=== PATIENT | male | born 1960 | race Caucasian/White ===

== ENCOUNTER 2023-11-12 21:42 | Emergency (ER) | payer BC, SELFPAY ==
[2023-11-12 21:51] VITALS: BP 134/90
[2023-11-12] MEDS: DUONEB 3 ML INH ×2 (22:01→23:25)
--- NOTE | 2023-11-12 23:01 | ED.GENMED ---
History of Present Illness
General
Chief Complaint: Breathing Problem
Source: patient and spouse
Exam Limitations: none
Time Seen by Provider: 11/12/23 22:47
Nursing documentation reviewed up to this point in time: agreed with
Travel History
Have you had any contact with someone who has COVID-19?: No
Do you have any symptoms of coronavirus? Fever > 100 degrees, chills, cough, shortness of breath, sore throat, loss of taste or smell, muscle aches, or headache?: No
History of Present Illness
History of Present Illness:
62-year-old male presents emerged part complaining of cough, wheezing and shortness of breath worse over the past week. He has been struggling with this since July. He has been seen at urgent care in August and was placed on steroid given
albuterol. In July his primary care placed him on antibiotic for sinus infection, steroid albuterol. This seemed to help some.
Past History
Past History
ED Past Medical History: Other (Chronic cough, sinus infections)
ED Past Surgical History: Other (Rhinoplasty)
Social History
Tobacco: Non-smoker
Alcohol: None
Drug: None
Personal:
Living: with family
Review of Systems
Review of Systems
Allergies reviewed?: Yes
All Other Systems: Not applicable
Constitutional: Reports no symptoms
EENT: Reports runny nose
Respiratory: Reports cough and trouble breathing
Cardiac: Reports no symptoms
ABD/GI: Reports no symptoms
: Reports no symptoms
Musculoskeletal: Reports no symptoms
Skin: Reports no symptoms
Neurological: Reports no symptoms
Endocrine: Reports no symptoms
Hematologic/Lymphatic: Reports no symptoms
Psychiatric: Reports no symptoms
Phy Exam
Physical Exam
Physical Exam:
Physical Exam
General: no apparent distress, not acutely ill, afebrile
Neck: supple. no meningeal signs. normal posterior pharynx
Heart: s1/s2 regular rate and rhythm, no murmur. equal radial
pulses.
HEENT: Pupils equal round reactive to light, EOMI
Lungs: no acute respiratory distress. clear bilaterally, intermittent cough
Abdomen: normal bowel sounds. not tender. no CVAT
Neuro: alert and oriented. no focal neurological deficits cranial nerves II through XII intact
Skin: no rash
Psychiatric: well kept. interactive and cooperative
Extremities: no edema. no calf tenderness. negative homans. good distal pulses
Scores
Heart Failure Risk
Heart Failure Risk Score: Not Applicable
Course
Orders/Labs/Results
Orders:
Orders
11/12/23 21:59
Ipratropium/Albuterol Sulfate [Duoneb] 3 ml .ROUTE .STK-MED ONE
11/12/23 22:00
Ipratropium/Albuterol Sulfate [Duoneb] 3 ml INH R NOW ONE
11/12/23 22:59
Cardiac Monitoring- Treatment ONCE
IV Insert/Care/Rem.- Treatment PRN
Dexamethasone Sod Phosphate [Decadron] 10 mg IV NOW STA
Ipratropium/Albuterol Sulfate [Duoneb] 3 ml INH R NOW STA
Pulse Ox/cont/shift [RESP] Stat
Quantity: 1
11/12/23 23:24
Complete Blood Count/No Diff Urgent
Comprehensive Metabolic Panel Urgent
11/13/23 00:00
CR Chest - 2 Views Urgent
Reason For Exam: short of breath, cough
11/13/23 01:14
Pantoprazole [Protonix IV] 40 mg IV NOW STA
Abnormal Lab Results
11/12/23
23:24
BUN 24 H mg/dl
(9-20)
Glucose 153 H mg/dl
(70-99)
11/12/23 23:24
11/12/23 23:24
Vital Signs
Initial and Last Documented VS:
Initial Vital Signs
Temp Pulse Resp BP Pulse Ox
97.6 F 96 28 134/90 94
11/12/23 21:51 11/12/23 21:51 11/12/23 21:51 11/12/23 21:51 11/12/23 21:51
Last Documented Vital Signs
Temp Pulse Resp BP Pulse Ox
97.6 F 77 15 116/78 96
11/12/23 21:51 11/13/23 01:00 11/13/23 01:00 11/13/23 01:00 11/13/23 01:00
MDM/Problems Addressed
Differential Diagnosis Includes:
Pneumonia, asthma exacerbation, bronchitis
MDM/Problems Addressed:
62-year-old male with bronchospastic bronchitis, likely related to GERD versus allergies. Will prescribe short course of steroids. No signs of pneumonia.
Chronic conditions affecting care: Other (Chronic cough)
*Radiology
Radiology exam reviewed: preliminary read by ED provider (Chest x-ray no acute finding)
*Pulse Oximetry
Patient hypoxic: no
*EKG
Interpreted by ED Provider?: NA
*Pool Player Interpretation
Rate: Pool Player- N/A
*Critical Care Note
Total Time (30-74mins, 75-104mins- exclusive of procedures): Not Applicable
Patient Management
Social determinants of health affecting care: Living situation
Escalation/DeEscalation of care consider admission/obs:
Admit not indicated
ED Attending Note
-
Portions of this chart may have been created with voice recognition software.� Occasional wrong word or��sound alike� substitutions may have occurred due to the inherent limitations of voice recognition software.
Discharge Plan
Departure
Patient Disposition: Home (Routine Discharge)
Date of Disposition: 11/13/23
Time of Disposition: 01:15
Patient with high blood pressure during this ER visit?: Yes
Condition: Good
Discharge Problem:
Bronchitis, acute, with bronchospasm
Instructions: Acute Bronchitis, Adult (DC), BLOOD PRESSURE
Prescriptions:
New
pantoprazole [Protonix] 40 mg tablet,delayed release (DR/EC)
40 mg PO DAILY Qty: 30 0RF
prednisone 50 mg tablet
50 mg PO DAILY Qty: 5 0RF
No Action
losartan 50 mg Tablet
50 mg PO DAILY
levothyroxine 75 mcg Tablet
75 mcg PO DAILY
Referrals:
Isael Sahni MD [Family Provider] -
Arthur North MD [Active] - Call in 1-3 days for appt (Pulmonology)
Interventions
Interventions:
*Risk Screen - Suicide Last Done: 11/12/23 21:51
*General Assessment Last Done: 11/12/23 23:14
*Neglect/Abuse Screening Last Done: 11/12/23 21:51
ED- Fall Risk Assessment Last Done: 11/12/23 23:32
*ED COVID-19 Vaccine History Last Done: 11/12/23 23:14
*Nursing Disposition Last Done: 11/13/23 02:04
ED- Cardiac Assessment Last Done: 11/12/23 23:32
ED- Pulmonary Assessment Last Done: 11/12/23 23:25
Discharge Date and Time
Discharge Date/Time: 11/13/23 02:04
Print Language: UPPER SORBIAN
[2023-11-12 23:14] VITALS: BMI 25.0
[2023-11-12] MEDS: DECADRON 10 MG IV (23:23)
[2023-11-12 23:38] LABS: Hemoglobin 14.8 g/dL (13.0-18.0); Mean Corp Hgb Conc. 36.1 g/dL (33.0-37.0); Mean Corpuscular Hgb 30.4 pg (27.0-31.0); Mean Corpuscular Volume 84.2 fL (80.0-94.0); Mean Platelet Volume 10.1 fL (7.4-10.4); Platelet Count 231 10^3/uL (130-400); Red Blood Cell Count 4.87 10^6/uL (4.70-6.10); Red Cell Dist. Width 12.6 % (11.5-14.5); White Blood Cell Count 9.4 10^3/uL (4.8-10.8)
--- NOTE | 2023-11-12 23:45 | EDRN ---
Pt says he feels better after breathing txs. Pt has had sob for months, worse in past 3 days, rescue inhalers not helping so pt came to ED for evaluation. Occasional dry, hacking non productive cough. No cp, abd pain, n/v, fever/chills.
[2023-11-12 23:53] LABS: ALT (SGPT) 19 U/L (0-50); AST (SGOT) 25 U/L (17-59); Albumin 4.2 g/dl (3.5-5.0); Alkaline Phosphatase 80 U/L (38-126); Blood Urea Nitrogen 24 mg/dl (9-20); Calcium 9.9 mg/dl (8.4-10.2); Carbon Dioxide 24 mmol/L (22-30); Chloride 105 mmol/L (98-107); Estimated Creatinine Clearance 74 ml/min; Glucose 153 mg/dl (70-99); Potassium 3.6 mmol/L (3.5-5.1); Sodium 135 mmol/L (135-145); Total Bilirubin 0.5 mg/dl (0.2-1.3); Total Protein 6.8 g/dl (6.3-8.2); eGFR > 60.00
[2023-11-13] VITALS: BP 111/74
[2023-11-13 01:00] VITALS: BP 116/78
[2023-11-13] MEDS: PROTONIX IV 40 MG IV (01:50)
== END 2023-11-13 02:04 | disposition home or self-care (01) ==
LOC: EMR 21:42
PROVIDERS: EMERGENCY PHYSICIAN Emergency Medicine; FAMILY PHYSICIAN Family Medicine
DX: J20.9 Acute bronchitis, unspecified (principal); R03.0 Elevated blood-pressure reading, without diagnosis of hypertension
CPT/HCPCS: 99284; 96374; 96375; 94640; 71046; 80053; 85027

== ENCOUNTER 2023-12-01 18:55 | Emergency (ER) | payer BC, SELFPAY ==
[2023-12-01 18:57] VITALS: BP 124/75
[2023-12-01 19:20] VITALS: BMI 25.8
[2023-12-01 19:34] VITALS: BP 115/79
--- NOTE | 2023-12-01 19:44 | ED.GENMED ---
History of Present Illness
General
Chief Complaint: Breathing Problem
Source: patient, records, spouse, previous radiology exam and previous hospital records
Exam Limitations: none
Time Seen by Provider: 12/01/23 19:10
Nursing documentation reviewed up to this point in time: agreed with
Travel History
Have you had any contact with someone who has COVID-19?: No
Do you have any symptoms of coronavirus? Fever > 100 degrees, chills, cough, shortness of breath, sore throat, loss of taste or smell, muscle aches, or headache?: No
History of Present Illness
History of Present Illness:
62year male presents with cough and shortness of breath fever last night of 102
Patient had asthma as a child allergies in his adulthood 6 months ago developed cough and shortness of breath seen in urgent care ER recently 2 courses steroids orally followed up with pulmonary told that he did have asthma given what sounds like a
rescue inhaler and a preventative inhaler
Also on a PPI
Also had sinus congestion, no occupational inhalations
States he is feeling better now that he is out of the heat and humidity, and cool ER air, states he not as severe as he was when he was in the ER recently but he states he came earlier this time
Past History
Past History
ED Past Medical History: Asthma and Other (Chronic cough, sinus infections)
ED Past Surgical History: Other (Rhinoplasty)
Social History
Tobacco: Non-smoker
Alcohol: None
Drug: None
Personal:
Living: with family
Employment: Employed
Review of Systems
Review of Systems
All Other Systems: Not applicable
Constitutional: Reports fever and fatigue
EENT: Reports runny nose
Respiratory: Reports cough and trouble breathing
Cardiac: Reports no symptoms
ABD/GI: Reports no symptoms
: Reports no symptoms
Musculoskeletal: Reports no symptoms
Skin: Reports no symptoms
Phy Exam
Physical Exam
Physical Exam:
Physical Exam
General: Nasal sounding voice nontoxic
Neck: Posterior pharynx is clear
Heart: s1/s2 regular rate and rhythm, no murmur. equal radial pulses.
Lungs: Fair air movement with end expiratory wheeze
Abdomen: Not
Neuro: alert and oriented. no focal neurological deficits
Skin: no rash
Psychiatric: well kept. interactive and cooperative
Extremities: no edema. no calf tenderness.
Scores
Heart Failure Risk
Heart Failure Risk Score: Not Applicable
Course
Orders/Labs/Results
Orders:
Orders
12/01/23 19:35
Cardiac Monitoring- Treatment ONCE
IV Insert/Care/Rem.- Treatment PRN
Dexamethasone Sod Phosphate [Decadron] 10 mg IV NOW STA
Ipratropium/Albuterol Sulfate [Duoneb] 3 ml INH R NOW STA
Peak Flow Rate [RESP] Urgent
Quantity: 1
12/01/23 19:36
CR Chest - 2 Views Urgent
Comment:
Reason For Exam: fever cough
12/01/23 19:48
Electrocardiogram (*1) Urgent
Reason for Study: Shortness of Breath
EKG- Treatment ONCE
12/01/23 20:34
COVID-19 Antigen Urgent
Source: Nasal Swab
Complete Blood Count/With Diff Urgent
Comprehensive Metabolic Panel Urgent
Lactic Acid Q4H
Comment: CANCEL 2nd LACTIC ACID IF 1st LACTIC ACID IS LESS THAN 2
Procalcitonin Urgent
PCT Algorithmm Indication: Respiratory
Blood Culture Q30M
MARQUISE Source: Blood/Venous
Specimen Description:
Influenza A+B Rapid Molecular Urgent
MARQUISE Source: Nasal Swab
Specimen Description:
12/01/23 20:53
Blood Culture Q30M
MARQUISE Source: Blood/Venous
Specimen Description:
12/01/23 21:19
Respiratory Syncytial Virus Urgent
MARQUISE Source: Nasal Swab
Specimen Description:
Date Specimen was Collected: 12/01/23
Time Specimen was Collected: 21:17
12/01/23 22:23
Azithromycin [Zithromax] 500 mg PO NOW STA
Abnormal Lab Results
12/01/23
20:34
Monocytes % 10.4 H %
(1.7-9.3)
Glucose 114 H mg/dl
(70-99)
Procalcitonin 0.28 H ng/ml
(0.0-0.25)
12/01/23 20:34
12/01/23 20:34
Vital Signs
Initial and Last Documented VS:
Initial Vital Signs
Temp Pulse Resp BP Pulse Ox
98.2 F 84 18 124/75 97
12/01/23 18:57 12/01/23 18:57 12/01/23 18:57 12/01/23 18:57 12/01/23 18:57
Last Documented Vital Signs
Temp Pulse Resp BP Pulse Ox
98.2 F 71 10 109/75 95
12/01/23 18:57 12/01/23 21:00 12/01/23 21:00 12/01/23 21:00 12/01/23 21:00
MDM/Problems Addressed
Differential Diagnosis Includes:
Reactive airway disease viral syndrome bronchitis pneumonia perhaps vocal cord dysfunction
MDM/Problems Addressed:
Cough shortness of breath fever
Chronic conditions affecting care: HTN and Asthma
Acute Exacerbation and/or Progression of Chronic Illness: HTN and Asthma
*Radiology
Radiology exam reviewed: preliminary read by ED provider
*Pulse Oximetry
Patient hypoxic: no
*EKG
Interpreted by ED Provider?: Yes
Interpretation: normal
Comparison EKG: no comparison EKG present
Heart Rate: 70
Rate: normal
Rhythm: sinus
Ischemia: no ischemia
*Chief Dietitian Interpretation
Rate: normal
Interpretation: normal
Heart Rate: 78
Rhythm: sinus
*Critical Care Note
Total Time (30-74mins, 75-104mins- exclusive of procedures): Not Applicable
Update Note
Update Note:
Update patient with recurrent but persistent respiratory issues for about 6 months urgent care visit pulmonary visit and ER visit
Peak flow initially 290-300
Will try DuoNeb and steroids check labs viral swabs
Did have a fever last night which he has not had previously during the last 6 months
10:30 AM peak flow up to 400 patient feeling much better Long conversation with him about labs chest x-ray results procalcitonin will treat with the Zithromax there is some anti-inflammatory properties for that, slow taper steroids did talk to the
patient he has seen an ENT a year year and a half ago told that he had some sort of abnormality in his upper airway encouraged him to follow up with them again, apparently they had recommended some further testing which he never ended up having done
ED Attending Note
-
Portions of this chart may have been created with voice recognition software.� Occasional wrong word or��sound alike� substitutions may have occurred due to the inherent limitations of voice recognition software.
Discharge Plan
Departure
Patient Disposition: Home (Routine Discharge)
Date of Disposition: 12/01/23
Time of Disposition: 22:27
Patient with high blood pressure during this ER visit?: No
Condition: Good
Discharge Problem:
Asthmatic bronchitis
Instructions: Acute Bronchitis, Adult (DC), Asthma, Adult (DC)
Prescriptions:
No Action
losartan 50 mg Tablet
50 mg PO DAILY
levothyroxine 75 mcg Tablet
75 mcg PO DAILY
pantoprazole [Protonix] 40 mg tablet,delayed release (DR/EC)
40 mg PO DAILY Qty: 30 0RF
prednisone 50 mg tablet
50 mg PO DAILY Qty: 5 0RF
Referrals:
Isael Sahni MD [Family Provider] - Follow up in 5-7 days
Activity Restrictions/Additional Instructions:
Follow-up with your field care advocate and family doctor
Additionally call your prior vulnerability researcher to discuss your symptoms and arrange follow-up
Interventions
Interventions:
*Risk Screen - Suicide Last Done: 12/01/23 18:57
*General Assessment Last Done: 12/01/23 18:57
*Neglect/Abuse Screening Last Done: 12/01/23 18:57
ED- Fall Risk Assessment Last Done: 12/01/23 19:20
*ED COVID-19 Vaccine History Last Done: 12/01/23 19:20
ED- Cardiac Assessment Last Done: 12/01/23 19:20
ED- Pulmonary Assessment Last Done: 12/01/23 19:20
Discharge Date and Time
Print Language: ARGENTINE
[2023-12-01 20:00] VITALS: BP 115/76
[2023-12-01 20:45] LABS: % Basophils 0.7 % (0-2); % Eosinophils 2.3 % (0-6); % Immature Granulocytes 0.2 % (0-0.5); % Monocytes 10.4 % (1.7-9.3); % Neutrophils 65.4 % (42.2-75.2); Absolute Eosinophils 0.1 10^3/uL (0-0.7); Absolute Lymphocytes 1.3 10^3/uL (1.2-3.4); Absolute Monocytes 0.6 10^3/uL (0.1-0.6); Hematocrit 41.6 % (39.0-52.0); Hemoglobin 14.8 g/dL (13.0-18.0); Mean Corp Hgb Conc. 35.6 g/dL (33.0-37.0); Mean Corpuscular Hgb 29.5 pg (27.0-31.0); Mean Platelet Volume 9.8 fL (7.4-10.4); Nucleated Red Blood Cells % 0 % (-); Platelet Count 159 10^3/uL (130-400); Red Blood Cell Count 5.01 10^6/uL (4.70-6.10); Red Cell Dist. Width 12.7 % (11.5-14.5); White Blood Cell Count 6.1 10^3/uL (4.8-10.8)
[2023-12-01] MEDS: DECADRON 10 MG IV (20:48)
[2023-12-01] MEDS: DUONEB 3 ML INH (20:49)
[2023-12-01 20:55] LABS: Lactic Acid 0.8 mmol/L (0.7-2.0)
[2023-12-01 21:00] VITALS: BP 109/75
[2023-12-01 21:01] LABS: ALT (SGPT) 26 U/L (0-50); AST (SGOT) 37 U/L (17-59); Albumin 4.3 g/dl (3.5-5.0); Alkaline Phosphatase 85 U/L (38-126); Blood Urea Nitrogen 17 mg/dl (9-20); Calcium 9.5 mg/dl (8.4-10.2); Carbon Dioxide 24 mmol/L (22-30); Chloride 103 mmol/L (98-107); Estimated Creatinine Clearance 80 ml/min; Glucose 114 mg/dl (70-99); Potassium 3.7 mmol/L (3.5-5.1); Sodium 137 mmol/L (135-145); Total Bilirubin 1.1 mg/dl (0.2-1.3); eGFR > 60.00
[2023-12-01 21:04] LABS: COVID-19 Antigen Negative (Negative)
[2023-12-01 21:18] LABS: Procalcitonin 0.28 ng/ml (0.0-0.25)
[2023-12-01 22:00] VITALS: BP 110/73
[2023-12-01] MEDS: ZITHROMAX 500 MG PO (22:59)
== END 2023-12-01 23:06 | disposition home or self-care (01) ==
LOC: EMR 18:55
PROVIDERS: EMERGENCY PHYSICIAN Emergency Medicine; FAMILY PHYSICIAN Family Medicine
DX: J45.901 Unspecified asthma with (acute) exacerbation (principal); Z11.52 Encounter for screening for COVID-19; I10 Essential (primary) hypertension; Z86.16 Personal history of COVID-19; Z88.8 Allergy status to other drugs, medicaments and biological substances
CPT/HCPCS: 99284; 96374; 94640; 71046; 80053; 83605; 84145; 85025; 87040; 87502; 87807; 87811; 93005

== ENCOUNTER 2024-07-29 16:20 | Inpatient (IN) | payer BC, SELFPAY ==
[2024-07-29] VITALS (11 sets, daily range): BP systolic 119–146; BP diastolic 72–107; BMI 22.1
--- NOTE | 2024-07-29 11:14 | ED.GENMED ---
History of Present Illness
<Yanelis Bai PA-C - Last Filed: 07/29/24 23:19>
General
Chief Complaint: Abdominal Pain
Source: patient
Exam Limitations: none
Time Seen by Provider: 07/29/24 10:40
Nursing documentation reviewed up to this point in time: agreed with
History of Present Illness
History of Present Illness:
Patient is a 63-year-old male with history hypertension, hypothyroid presenting to the emergency department for evaluation of right lower abdominal pain. Patient states pain initially started 3 days ago and has been worsening. He describes a sharp
pain in his right lower abdomen without any radiation to his back, or groin. He also reports associated anorexia and very little appetite over the past few days with some mild nausea. No vomiting. No diarrhea or constipation. No fevers or
chills. No dysuria or testicular pain. No chest pain or shortness of breath.
Of note�patient did have a colonoscopy 8 days ago which was relatively uncomplicated. He did have 1 polyp removed.
No history of abdominal surgeries.
Past History
<Yanelis Bai PA-C - Last Filed: 07/29/24 23:19>
Past History
ED Past Medical History: Asthma and Other (Chronic cough, sinus infections)
ED Past Surgical History: Other (Rhinoplasty)
Social History
Tobacco: Non-smoker
Alcohol: None
Drug: None
Personal:
Living: with family
Employment: Employed
Review of Systems
<Yanelis Bai PA-C - Last Filed: 07/29/24 23:19>
Review of Systems
Allergies reviewed?: Yes
All Other Systems: ROS reviewed and negative except as documented in HPI and ROS
Phy Exam
<Yanelis Bai PA-C - Last Filed: 07/29/24 23:19>
Physical Exam
Physical Exam:
Vitals: Patient's vital signs are stable. Afebrile
General: Patient is well appearing, no acute distress. Nontoxic appearing
Skin: Warm and dry, no rashes or lesions
Head: Normocephalic, atraumatic
Eyes: Sclera nonicteric. EOMs intact. No nystagmus.
Throat: Protecting airway
Neck: Normal ROM, no cervical spine tenderness, no meningismus
Cardiac: Regular rate and rhythm, no murmurs.
Pulm: Normal respiratory effort, no wheezes, rales, rhonchi heard on exam.
Abdomen: Abdomen soft. Mild tenderness in right lower quadrant at McBurney's point with voluntary guarding. No rebound tenderness. No CVA tenderness
Extremities: No evidence of cyanosis or edema. Palpable DP pulses bilaterally.
Neuro: AAOx3. Grossly intact.
Psychiatric: Normal affect.
Course
<Yanelis Bai PA-C - Last Filed: 07/29/24 23:19>
Orders/Labs/Results
Orders:
Orders
07/29/24 11:13
CT Abd/pelvis W Iv Cont Urgent
Comment: 8 days s/p colonoscopy
Reason For Exam: RLQ pain, + anorexia
0.9% Sodium Chloride 1000 ml [Nss] 1,000 ml IV BOLUS
HYDROmorphone [Dilaudid] 0.5 mg IV NOW STA
Ondansetron Injectable [Zofran] 4 mg IV NOW STA
07/29/24 11:30
Complete Blood Count/With Diff Urgent
Comprehensive Metabolic Panel Urgent
Lipase Urgent
Urinalysis Reflex To Culture Urgent
Date Specimen was Collected: 07/29/24
Time Specimen was Collected: 11:14
Urine Microscopic Reflex Cult Urgent
07/29/24 13:02
HYDROmorphone [Dilaudid] 1 mg IV NOW STA
07/29/24 14:06
Consult Surgery [SURGICAL CONSULT] Urgent
Consulting Provider: Victor Hugo Hardy
Was physician already notified: Yes
07/29/24 Dinner
Clear Liquid
At Your Request: Full Participation
Does patient need a safe tray?: No
07/29/24 15:55
COVID-19 Antigen Urgent
Source: Nasal Swab
Influenza A+B Rapid Molecular Urgent
MARQUISE Source: Nasal Swab
Specimen Description:
07/29/24 16:01
Admit/Transfer Patient As Directed
Co-Sign Provider:
Level of Care: Inpatient admission
Assign to:: Medical/Surgical
Physician / Group: antonio jimenez
Diagnosis: abd pain concern intra ab post op process, allergi rxn hand, asthma flaire
Reason for Hospitalization: abd pain concern intra ab post op process, allergi rxn hand, asthma flaire
Expected length of stay greater than two midnights?: Yes
ELOS- Estimated Length of Stay in days: 4
I certify the patient meets the requirements for IP care: Yes
Code Status As Directed
Resuscitation Status: Full Code
07/29/24 16:06
PRN Pain Medication Management As Directed
May give lesser potent ordered pain med per pt: Yes
preference::
Protocol:: Medication orders for pain may be administered in a
manner that supports deferring to patient preference
when the pt is:
- Requesting an ordered lesser potent pain medication.
Least to most potent pain medications are defined
as: acetaminophen < NSAID < tramadol < opioids
(morphine, oxycodone, hydromorphone).
- Requesting a lesser dose of the same medication IF
ORDERED.
- Requesting a less intrusive route of administration
if both routes are prescribed by the provider (PO <
IV).
07/29/24 16:35
Morphine Sulfate 4 mg IV Q4HPRN PRN
07/29/24 17:12
0.9% Sodium Chloride 1000 ml [Nss] 1,000 ml IV 100 mls/hr
Acetaminophen [Tylenol] 650 mg PO Q4HPRN PRN
Albuterol Nebs [Ventolin Nebules] 2.5 mg INH R Q4HPRN PRN
Prochlorperazine [Compazine] 5 mg IV Q6HPRN PRN
Tramadol HCl [Ultram] 50 mg PO Q6HPRN PRN
07/29/24 17:12
Activity As Directed
Activity Level: As Tolerated
Intake/ Output As Directed
Frequency: Per unit guidelines
Pneumatic Compression Sleeves As Directed
Type: Knee high
Vital Signs As Directed
Frequency: Per unit guidelines
DX Deep Vein Thrombosis Video Routine
07/30/24 Breakfast
NPO
Allow oral meds: Yes
Allow clear liquids: No
NPO with Ice Chips: No
Complete Blood Count/With Diff IN AM
Comprehensive Metabolic Panel IN AM
Levothyroxine [Synthroid] 75 mcg PO DAILY @ 0600
07/30/24 08:00
FLUTICASONE PROPIONATE 44 mcg [Flovent 44 Mcg Inhaler] 2 puff INH R BID
Losartan [Cozaar] 50 mg PO DAILY
07/31/24 06:00
Complete Blood Count/With Diff IN AM
Comprehensive Metabolic Panel IN AM
08/01/24 06:00
Complete Blood Count/With Diff IN AM
Comprehensive Metabolic Panel IN AM
Abnormal Lab Results
07/29/24
11:30
Absolute Neuts (auto) 8.4 H 10^3/uL
(1.4-6.5)
Neutrophils % 80.3 H %
(42.2-75.2)
Lymphocytes % 11.9 L %
(20.5-51.1)
BUN 21 H mg/dl
(9-20)
Glucose 113 H mg/dl
(70-99)
Urine Ketones 1+ A
(Negative)
Urine Bilirubin 1+ A
(Negative)
Leukocyte Esterase Rfl Trace A
(Negative)
Urine Bacteria (Reflex) Few A
(Negative)
07/29/24 11:30
07/29/24 11:30
Vital Signs
Initial and Last Documented VS:
Initial Vital Signs
Temp Pulse Resp BP Pulse Ox
98.2 F 72 16 120/82 96
07/29/24 09:34 07/29/24 09:34 07/29/24 09:34 07/29/24 09:34 07/29/24 09:34
Last Documented Vital Signs
Temp Pulse Resp BP Pulse Ox
98.3 F 57 18 134/96 95
07/29/24 17:20 07/29/24 17:20 07/29/24 17:20 07/29/24 17:20 07/29/24 17:20
<Thaddeus Young, DO - Last Filed: 07/29/24 15:55>
Orders/Labs/Results
Orders:
Orders
07/29/24 11:13
CT Abd/pelvis W Iv Cont Urgent
Comment: 8 days s/p colonoscopy
Reason For Exam: RLQ pain, + anorexia
0.9% Sodium Chloride 1000 ml [Nss] 1,000 ml IV BOLUS
HYDROmorphone [Dilaudid] 0.5 mg IV NOW STA
Ondansetron Injectable [Zofran] 4 mg IV NOW STA
07/29/24 11:30
Complete Blood Count/With Diff Urgent
Comprehensive Metabolic Panel Urgent
Lipase Urgent
Urinalysis Reflex To Culture Urgent
Date Specimen was Collected: 07/29/24
Time Specimen was Collected: 11:14
Urine Microscopic Reflex Cult Urgent
07/29/24 13:02
HYDROmorphone [Dilaudid] 1 mg IV NOW STA
07/29/24 14:06
Consult Surgery [SURGICAL CONSULT] Urgent
Consulting Provider: Victor Hugo Hardy
Was physician already notified: Yes
07/29/24 Dinner
Clear Liquid
At Your Request: Full Participation
Does patient need a safe tray?: No
07/29/24 15:55
COVID-19 Antigen Urgent
Source: Nasal Swab
Influenza A+B Rapid Molecular Urgent
MARQUISE Source: Nasal Swab
Specimen Description:
07/29/24 16:01
Admit/Transfer Patient As Directed
Co-Sign Provider:
Level of Care: Inpatient admission
Assign to:: Medical/Surgical
Physician / Group: antonio jimenez
Diagnosis: abd pain concern intra ab post op process, allergi rxn hand, asthma flaire
Reason for Hospitalization: abd pain concern intra ab post op process, allergi rxn hand, asthma flaire
Expected length of stay greater than two midnights?: Yes
ELOS- Estimated Length of Stay in days: 4
I certify the patient meets the requirements for IP care: Yes
Code Status As Directed
Resuscitation Status: Full Code
07/29/24 16:06
PRN Pain Medication Management As Directed
May give lesser potent ordered pain med per pt: Yes
preference::
Protocol:: Medication orders for pain may be administered in a
manner that supports deferring to patient preference
when the pt is:
- Requesting an ordered lesser potent pain medication.
Least to most potent pain medications are defined
as: acetaminophen < NSAID < tramadol < opioids
(morphine, oxycodone, hydromorphone).
- Requesting a lesser dose of the same medication IF
ORDERED.
- Requesting a less intrusive route of administration
if both routes are prescribed by the provider (PO <
IV).
07/29/24 16:35
Morphine Sulfate 4 mg IV Q4HPRN PRN
07/29/24 17:12
0.9% Sodium Chloride 1000 ml [Nss] 1,000 ml IV 100 mls/hr
Acetaminophen [Tylenol] 650 mg PO Q4HPRN PRN
Albuterol Nebs [Ventolin Nebules] 2.5 mg INH R Q4HPRN PRN
Prochlorperazine [Compazine] 5 mg IV Q6HPRN PRN
Tramadol HCl [Ultram] 50 mg PO Q6HPRN PRN
07/29/24 17:12
Activity As Directed
Activity Level: As Tolerated
Intake/ Output As Directed
Frequency: Per unit guidelines
Pneumatic Compression Sleeves As Directed
Type: Knee high
Vital Signs As Directed
Frequency: Per unit guidelines
DX Deep Vein Thrombosis Video Routine
07/30/24 Breakfast
NPO
Allow oral meds: Yes
Allow clear liquids: No
NPO with Ice Chips: No
Complete Blood Count/With Diff IN AM
Comprehensive Metabolic Panel IN AM
Levothyroxine [Synthroid] 75 mcg PO DAILY @ 0600
07/30/24 08:00
FLUTICASONE PROPIONATE 44 mcg [Flovent 44 Mcg Inhaler] 2 puff INH R BID
Losartan [Cozaar] 50 mg PO DAILY
07/31/24 06:00
Complete Blood Count/With Diff IN AM
Comprehensive Metabolic Panel IN AM
08/01/24 06:00
Complete Blood Count/With Diff IN AM
Comprehensive Metabolic Panel IN AM
Abnormal Lab Results
07/29/24
11:30
Absolute Neuts (auto) 8.4 H 10^3/uL
(1.4-6.5)
Neutrophils % 80.3 H %
(42.2-75.2)
Lymphocytes % 11.9 L %
(20.5-51.1)
BUN 21 H mg/dl
(9-20)
Glucose 113 H mg/dl
(70-99)
Urine Ketones 1+ A
(Negative)
Urine Bilirubin 1+ A
(Negative)
Leukocyte Esterase Rfl Trace A
(Negative)
Urine Bacteria (Reflex) Few A
(Negative)
07/29/24 11:30
07/29/24 11:30
Vital Signs
Initial and Last Documented VS:
Initial Vital Signs
Temp Pulse Resp BP Pulse Ox
98.2 F 72 16 120/82 96
07/29/24 09:34 07/29/24 09:34 07/29/24 09:34 07/29/24 09:34 07/29/24 09:34
Last Documented Vital Signs
Temp Pulse Resp BP Pulse Ox
98.3 F 57 18 134/96 95
07/29/24 17:20 07/29/24 17:20 07/29/24 17:20 07/29/24 17:20 07/29/24 17:20
<Yanelis Bai PA-C - Last Filed: 07/29/24 23:19>
MDM/Problems Addressed
Differential Diagnosis Includes:
Not limited to: Appendicitis, post-operative complication including bowel perforation, diverticultis, constipation, incarcerated hernia, obstruction, kidney stone, pyelonephritis, etc.
MDM/Problems Addressed:
63 year old male with RLQ abdominal pain, anorexia, and nausea x 3 days currently 8 days s/p colonoscopy. No fevers or chills. No urinary symptoms. Did have a cecal poylp removed during colonoscopy. Vitals stable, afebrile. Exam as above. Abdomen
soft with mild-moderate tenderness in RLQ. No rebound tenderness or guarding. Given recent colonoscopy- will rule out complication including perforation. Must consider appendicitis as well given location of pain and history. Will check labs, UA, and
CT. Pain management and IVF. Will closely monitor and reassess.
Update: Labs reviewed. No clinically significant abnormalities. Urine without signs of infection. CT without acute findings - however appendix not clearly visualized. Given concern for appendicitis - case was discussed with general surgery,
Hayley who reveiwed imaging. Per general surgery - no evidence of appendicitis although possible small blood clot visualized in RLQ. This would coincide with location of polyp removal .
Update: Findings discussed with patient at bedside. On reassessment - patient is in significant discomfort despite multiple rounds of IV pain medication. Will admit to hospitalist for pain control/ further management. Colorectal made aware. Patient
accepted to hospitalist service in stable condition
Chronic conditions affecting care:
Hypertension, diverticulosis
Acute Exacerbation and/or Progression of Chronic Illness:
N/A
<Yanelis Bai PA-C - Last Filed: 07/29/24 23:19>
*Radiology
Radiology exam reviewed: radiology read reviewed
*Pulse Oximetry
Patient hypoxic: no
*EKG
Interpreted by ED Provider?: NA
*Director Underwriter Sales Interpretation
Rate: Director Underwriter Sales- N/A
*Critical Care Note
Total Time (30-74mins, 75-104mins- exclusive of procedures): Not Applicable
Data Reviewed
Review of Other/Old Records Reveals: Operative Reports (colonoscopy report from outside records which demonstrate removal of cecal polyp)
<Thaddeus Young, - Last Filed: 07/29/24 15:55>
Patient Management
Social determinants of health affecting care: Living situation and Strong social support
Discussion with other providers: Hospitalist and Ground Water Pump Installer (Colorectal surgery)
Escalation/DeEscalation of care consider admission/obs:
Admit indicated
ED Attending Note
<Yanelis Bai PA-C - Last Filed: 07/29/24 23:19>
-
Portions of this chart may have been created with voice recognition software.� Occasional wrong word or��sound alike� substitutions may have occurred due to the inherent limitations of voice recognition software.
<Thaddeus Young, DO - Last Filed: 07/29/24 15:55>
ED Attending Note
Patient seen and examined by attending physician: Yes
I performed a history and physical exam of patient and discussed management with resident, I reviewed resident's note and agree with documented findings and plan of care.: Yes
ED Attending Note:
I have reviewed and agree with history treatment plan by Yanelis Bai. My exam revealed 63-year-old male with right lower quadrant tenderness. CT scan reveals likely blood clot in cecum. Discussed with colorectal surgery, who will follow
patient. Admit to hospitalist.
Discharge Plan
Departure
Patient Disposition: Admit
Date of Disposition: 07/29/24
Time of Disposition: 14:29
Presentation/result/management discussed w/ accepting MD/DO: Hospitalist
Covid-19: Not Applicable
Discharge Problem:
Intractable abdominal pain
Interventions
Interventions:
*Risk Screen - Suicide Last Done: 07/29/24 09:34
*General Assessment Last Done: 07/29/24 09:34
*Neglect/Abuse Screening Last Done: 07/29/24 11:31
*ED COVID-19 Vaccine History Last Done: 07/29/24 09:34
*Nursing Disposition Last Done: 07/29/24 18:05
FV-[id number]-Mzsupevyym Assessment Last Done: 07/29/24 11:39
Discharge Date and Time
Discharge Date/Time: 07/29/24 18:06
[2024-07-29] MEDS: DILAUDID 0.5 MG IV (11:32)
[2024-07-29] MEDS: ZOFRAN 4 MG IV (11:32)
[2024-07-29] MEDS: NSS 1000 IV ×2 (11:32→17:25)
[2024-07-29 11:51] LABS: % Basophils 0.2 % (0-2); % Eosinophils 1.7 % (0-6); % Immature Granulocytes 0.4 % (0-0.5); % Lymphocytes 11.9 % (20.5-51.1); % Monocytes 5.5 % (1.7-9.3); % Neutrophils 80.3 % (42.2-75.2); Absolute Eosinophils 0.2 10^3/uL (0-0.7); Absolute Lymphocytes 1.3 10^3/uL (1.2-3.4); Absolute Monocytes 0.6 10^3/uL (0.1-0.6); Absolute Neutrophils 8.4 10^3/uL (1.4-6.5); Hemoglobin 15.5 g/dL (13.0-18.0); Mean Corp Hgb Conc. 34.4 g/dL (33.0-37.0); Mean Corpuscular Hgb 28.9 pg (27.0-31.0); Mean Platelet Volume 9.3 fL (7.4-10.4); Nucleated Red Blood Cells % 0 % (-); Platelet Count 285 10^3/uL (130-400); Red Blood Cell Count 5.36 10^6/uL (4.70-6.10); White Blood Cell Count 10.5 10^3/uL (4.8-10.8)
[2024-07-29 11:57] LABS: Urine Albumin Trace (Neg - Trace); Urine Bilirubin 1+ (Negative); Urine Character Clear (Clear); Urine Color Yellow; Urine Glucose Negative (Negative); Urine Ketone 1+ (Negative); Urine Leukocyte Trace (Negative); Urine Nitrite Negative (Negative); Urine Occult Blood Negative (Negative); Urine Specific Gravity 1.025 (<1.030); Urine Urobilinogen Negative (Neg - 1+)
[2024-07-29 12:03] LABS: Urine Bacteria Few (Negative); Urine Mucus Few; Urine Red Blood Cell 0-2 /HPF (0-2); Urine Squamous Cell 0-2 /LPF (Few); Urine White Cell 0-2 /HPF (0-5)
[2024-07-29 12:05] LABS: ALT (SGPT) 14 U/L (0-50); AST (SGOT) 24 U/L (17-59); Albumin 4.3 g/dl (3.5-5.0); Alkaline Phosphatase 90 U/L (38-126); Blood Urea Nitrogen 21 mg/dl (9-20); Calcium 9.1 mg/dl (8.4-10.2); Carbon Dioxide 26 mmol/L (22-30); Chloride 103 mmol/L (98-107); Glucose 113 mg/dl (70-99); Lipase 66 U/L (23-300); Potassium 4.6 mmol/L (3.5-5.1); Sodium 139 mmol/L (135-145); Total Bilirubin 0.9 mg/dl (0.2-1.3); Total Protein 6.9 g/dl (6.3-8.2); eGFR > 60.00
[2024-07-29] MEDS: DILAUDID 1 MG IV (13:06)
--- NOTE | 2024-07-29 15:46 | HPS.HSE ---
Addendum entered and electronically signed by Jace Vazquez MD 07/29/24 16:50:
Seen and examined by me independently in collaboration with the nurse practitioner Ishmael.
Past medical history/social history/medication/allergies reviewed.
Lab data and imaging data reviewed.
Patient presents with right lower quadrant abdominal pain post to colonoscopy and cecal polyp removal. He denies any blood in the stool. Denies any nausea vomiting. Abdomen is soft but he has localized tenderness in the right lower quadrant. CT
abdomen pelvis which was done with only IV contrast shows no acute pathology. Clinical concern is post polypectomy pain. Patient is afebrile and white count is normal. Treat symptomatically. Consult colorectal surgery. Hold on antibiotics.
Patient also has a history of asthma and the last few days was having respiratory symptoms of cough with minimal phlegm and shortness of breath so he started to use his maintenance inhaler and as well as nebulizer. He was needing only belies this
once in the day. Chest with occasional rhonchi. No respiratory distress not hypoxic. Continue with symptomatic treatments with inhalers and nebulizer. Hold on steroids. Obtain a chest x-ray. Check a COVID and influenza swab.
Full code
Original Note:
Family Physician
-
Family Physician: Isael Sahni
Chief Complaint
-
Right lower quadrant abdominal pain status post colonoscopy, wheezing, shortness of breath, cough x 1 week needing asthma inhalers he was off
History of Present Illness
63-year-old male status post routine colonoscopy Sunday at outpatient facility where he had reported benign polypectomy. He states this is his third colonoscopy since his original first had benign polypectomy second no polyps, now third benign
polyps. There is no family history of colonic polyps, colon cancer, Crohn's disease he reports 3 days after his colonoscopy he still had not had a bowel movement, although was eating toast and drinking. So he decided to take 1 dose of MiraLAX on
07/24. The next day he then started to develop pinpoint tenderness to the right of his umbilicus with no fever, chills, vomiting, nausea, urine symptoms, diarrhea, chest pain, palpitations, shortness of breath, cough, fever, chills. He has had
brown soft formed daily stool since then. He said it is normally daily formed harder brown stool. He does state that he had history of being diagnosed with asthma in November 2023 was on budesonide/formoterol inhaler until May when he was taken off
by pulmonary Dr. North. He states this past week he started having persistent cough, wheezing, shortness of breath and needed to resume an inhaler. He was started on Arnuity Ellipta which she is taking daily along with a rescue inhaler. He has
no history of eosinophilic asthma, no prior history of intubations or childhood asthma. He also states today after receiving Dilaudid and Zofran together he has a macular pruritic rash to the outer palms of his hands. He has no rash to his
external or intraoral mouth, feet, or body. He has no sick contacts. Patient with past medical history of asthma Dx 2023 taken off meds May 2024, colonic benign polyps, HTN, hypothyroidism.
Medical History
Past Medical History
Past Medical History: Reports Other
Additional Past Medical History:
asthma Dx 2023 taken off meds May 2024
colonic benign polyps
HTN
hypothyroidism
Past Surgical History: Reports Other
Additional Past Surgical History:
Colonoscopy status post benign polypectomy first, second colonoscopy benign, third colonoscopy 07/21/2024 benign polypectomy
Social History
Tobacco: Non-smoker
Alcohol: None
Drug: None
Personal:
Living: With Family ()
Employment: Employed
Family History
Family History: Other (Mother history of ILD, RA late 70s, father psoriasis CAD CABG x 4 vessel prostate CA age 86, sister)
Allergies / Home Medications
Allergies reflects when Allergies were last updated in [facility].
Home Medications with original date entered in [facility]
Allergy/Medication List:
Allergies
Allergy/AdvReac Type Severity Reaction Status Date / Time
hydrochlorothiazide Allergy Unknown Verified 07/29/24 09:36
Home Medications
levothyroxine 75 mcg tablet 75 mcg PO DAILY 11/12/23
losartan 50 mg tablet 50 mg PO DAILY 11/12/23
albuterol sulfate 2.5 mg/3 mL (0.083 %) solution for nebulization 2.5 mg (3 mL) inhalation Q4H PRN shortness of breath or wheezing #90 mL 12/01/23
Arnuity Ellipta 100 mcg inhalation DAILY 07/29/24
Review of Systems
-
History Source: Patient and Family ( at bedside)
A 12 point ROS was completed and negative except as noted: Yes
Constitutional: Denies Fever, Fatigue or Chills
EENT: Denies Sore Throat, Mouth Pain, Mouth Swelling or Runny Nose
Respiratory: Reports Cough and Trouble Breathing (Wheezing)
Cardiac: Denies Chest Pain, Diaphoresis or Palpitations
Abdomen/GI: Reports Abdominal Pain (To right of umbilicus point tenderness); Denies Nausea, Vomiting, Diarrhea, Constipated, Bloody Stools or Black Stools
: Denies Dysuria, Frequency, Flank Pain, Incontinence, Difficulty Voiding, Urgency, Bleeding or Dark Urine
Musculoskeletal: Denies Joint Pain or Edema
Skin: Reports Rash (Macular palmar rash bilateral hands along outer borders post IV Dilaudid/IV Zofran pleuritic); Denies Itching
Neurological: Denies Dizzy or Headache
Endocrine: Reports No Symptoms
Hematologic/Lymphatic: Reports No Symptoms
Psych: Reports Calm
Physical Exam
Vital Signs
Vital Signs
Temp Pulse Resp BP Pulse Ox
98.2 F 72 16 129/74 97
07/29/24 09:34 07/29/24 09:34 07/29/24 09:34 07/29/24 14:38 07/29/24 15:00
Physical Exam
General: Comfortable, Conversant and Pain; No Fever
HEENT: NormoCephalic, Anicteric, Moist mucous membranes, PERRLA, Dike Conjunctivae and No Ptosis
Respiratory: Clear; No Wheezes or Rales
Cardiac: S1/S2 and Regular Rhythm; No Murmur, Rub, Gallop or Peripheral Edema
Breast: Deferred by me
GI: Soft, Non Tender, Normal Bowel Sounds and No Hepatosplenomegaly
Rectal: Deferred by Provider
Genito-urinary: Deferred by me
Musculoskeletal: No Clubbing, No Cyanosis and No Edema
Skin: Warm and Dry; No Rash
Neuro: AO x 3, No Motor Deficits and No Sensory Deficits; No Slurred Speech, Facial Droop, Tremors or Sedated
Psych: Calm
Laboratory Results
-
07/29/24 11:30
07/29/24 11:30
Laboratory Results
Total Bilirubin 0.9 mg/dl (0.2-1.3) 07/29/24 11:30
AST 24 U/L (17-59) 07/29/24 11:30
ALT 14 U/L (0-50) 07/29/24 11:30
Alkaline Phosphatase 90 U/L (38-126) 07/29/24 11:30
Lipase 66 U/L (23-300) 07/29/24 11:30
Data Reviewed
-
Lab Data: Labs Reviewed by me
Impression/Plan
-
Impression/plan:
Inpatient MedSurg
#Right lower quadrant abdominal pain status post colonoscopy with polypectomy concern for postop complication versus intra-abdominal process
-History of colonoscopy first 1 benign polypectomy, second negative, third on 07/21/2024 post polypectomy
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
-Was seen at bedside by General surgery
-Clear liquid tonight
-N.p.o. after midnight
-IV NSS
-MAy need CT abdomen pelvis with oral and IV contrast tomorrow
-Patient given Dilaudid in ER, IV Zofran
-Will give Tylenol, tramadol, morphine severe pain, Compazine for nausea(given patient unsure if he is allergic to Dilaudid or Zofran while in the ER)
-Follow CBC, CMP
CT abdomen pelvis with IV contrast: No evidence of acute pathology, bowel pathology is limited by lack of enteric contrast. Appendix is not confidently demonstrated.
# Acute on chronic asthma�mild verus viral URI COVID/influenza
#Recent Dx November 2023 was taken off meds May [address] North
-Recent past week of shortness of breath, wheezing, cough requiring use of new inhaler Arnuity Ellipta and albuterol rescue inhaler
-Resume Arnuity Ellipta and albuterol rescue inhaler that patient stopped May 2024 per pulmonology
#Pleuritic palmar rash suspected secondary to Dilaudid versus Zofran post administration
-Will give Tylenol, tramadol, morphine severe pain, Compazine for nausea(given patient unsure if he is allergic to Dilaudid or Zofran while in the ER)
-Monitor for any allergic reactions
#HTN�benign
-Continue losartan 50 mg daily did not take this a.m.
#Hypothyroidism
-Continue levothyroxine 75 mcg p.o. daily
DVT prophylaxis
SCDs
Full code
--- NOTE | 2024-07-29 15:57 | CON.CRS ---
Consultation
-
Date/Time Consultation Requested: 07/29/2024 @ 15:00
Date/Time Consultation Performed: 07/29/2024 @ 15:30
Requesting Provider: Yanelis Bai PA-C
Performing Provider: Elbert Arreola MD
Reason for Consultation: Abdominal pain
Medical History
-
Chief Complaint: Right lower quadrant abdominal pain for 3 days
History of Present Illness:
63-year-old male who underwent a colonoscopy on 07/21/2024 at which time a diminutive polyp was removed from the cecum. He reports the pathology was a tubular adenoma. This is a colonoscopy has not felt well. He did have much of an appetite and he
had some vague abdominal discomfort but over the past 3 days the pain has intensified. The pain is now localized to right lower quadrant and it is constant. The pain is sharp and stabbing and nonradiating. He is eating but his appetite is
reduced. There is been no nausea, vomiting, fevers or chills. He is also moving his bowels and passing flatus. His stools are reduced in volume and slightly loose but no blood. 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
Luis and Shauna to contact me regarding the specifics of the procedure. He has a history of asthma and is currently on Prednisone.
Since being in the emergency room he has received Dilaudid with little improvement in his pain. He remains afebrile and his vital signs are stable.
On physical examination he is in no acute distress. His abdomen is soft with very mild tenderness at McBurney's point. There are no peritoneal signs.
His white count, hemoglobin, and electrolytes are normal. A CT scan of the abdomen and pelvis with IV contrast only and there is no evidence of bowel pathology. Upon my review there does appear to be what could be a clot in the cecum. There is no
significant inflammation and there is no free air.
Past Medical History
Past Medical History: Asthma
Social History
Tobacco: Non-Smoker
Alcohol: None
Personal:
Family History
Family History: Reviewed & Not Pertinent
Allergies / Home Medications
Allergy/AdvReac Type Severity Reaction Status Date / Time
hydrochlorothiazide Allergy Unknown Verified 07/29/24 09:36
�Medication �Instructions �Recorded �Confirmed �Type
levothyroxine 75 mcg tablet 75 mcg PO DAILY 11/12/23 11/12/23 History
losartan 50 mg tablet 50 mg PO DAILY 11/12/23 11/12/23 History
pantoprazole 40 mg tablet,delayed 40 mg PO DAILY #30 tabs 11/13/23 Rx
release (Protonix)
prednisone 50 mg tablet 50 mg PO DAILY #5 tabs 11/13/23 Rx
albuterol sulfate 2.5 mg/3 mL 2.5 mg (3 mL) inhalation Q4H PRN 12/01/23 Rx
(0.083 %) solution for nebulization shortness of breath or wheezing
#90 mL
azithromycin 250 mg tablet 250 mg PO DAILY #4 tabs 12/01/23 Rx
(Zithromax)
prednisone 10 mg tablet 10 mg PO DIRECTED #35 tabs 12/01/23 Rx
Review of Systems
-
History Source: Patient
All other systems: Negative unless noted
A 10 point review of systems was completed, and was negative except as per HPI.
Physical Exam
Vital Signs
Temp 98.2 F 07/29/24 09:34
Pulse 72 07/29/24 09:34
Resp Rate 16 07/29/24 09:34
Blood pressure 129/74 07/29/24 14:38
SaO2 97 07/29/24 15:00
07/28/24 07/29/24 07/30/24
06:59 06:59 06:59
Actual Weight 71 kg
Lab Results / Allergies
07/29/24 11:30
07/29/24 11:30
WBC 10.5 10^3/uL (4.8-10.8) 07/29/24 11:30
Hgb 15.5 g/dL (13.0-18.0) 07/29/24 11:30
Hct 45.0 % (39.0-52.0) 07/29/24 11:30
Plt Count 285 10^3/uL (130-400) 07/29/24 11:30
Abs Immat Gran (auto) 0.0 10^3/uL (0-0.05) 07/29/24 11:30
Neutrophils % 80.3 % (42.2-75.2) H 07/29/24 11:30
Allergy/AdvReac Type Severity Reaction Status Date / Time
hydrochlorothiazide Allergy Unknown Verified 07/29/24 09:36
Physical Exam
General: Well Developed, Well Nourished and No Apparent Distress
HEENT: Anicteric
GI: Soft, Non Distended and Tender (minimal, at McBurney's point)
Musculoskeletal: No Edema
Neuro: Awake and Alert
Data Reviewed
-
CT Scan: Image Personally Visualized and interpreted, Report Reviewed by me, Discussed with Physician, Discussed with Patient and Discussed with Family
Labs: Labs Reviewed by me, Discussed with Physician, Discussed with Patient and Discussed with Family
Old Records: Requested
Total Time Spent with Patient (in minutes): 55
Assessment / Plan
-
Right lower quadrant abdominal pain possibly related to his recent colonoscopy. I reviewed the possible etiologies with the patient and his as well as the evaluation and treatment options.
There is no acute indication for surgery at this time. Since his pain is not well-managed, the plan is to admit him for pain management and reevaluation. If his symptoms improve, I will advance his diet and possibly discharge tomorrow. He is okay
for clear liquids at this time. If any additional signs or symptoms develop, or the pain persists, I will arrange for a repeat CT scan with oral and intravenous contrast. All questions answered and they are in agreement with the plan.
--- NOTE | 2024-07-29 16:15 | W.PN.UPDATE ---
Update Note
Progress Note Update
As I discussed with the hospitalist, I recommend avoiding Toradol for now.
[2024-07-29 16:48] LABS: COVID-19 Antigen Negative (Negative)
[2024-07-29] MEDS: ULTRAM 50 MG PO (20:12)
[2024-07-29] MEDS: MORPHINE SULFATE 4 MG IV (23:28)
--- NOTE | 2024-07-30 02:17 | DOWNTIME ---
There was a [employer] Consult[employer] Downtime on 07/30/2024 from 0100 to 07/30/2023 at 0205 . Downtime documentation of patient's care, including medication administrations, has been reconciled in the electronic record per guidelines. Refer to the
patient's paper chart under the miscellaneous tab to see printed paper medication records and downtime forms.
[2024-07-30] MEDS: NSS 1000 IV ×3 (02:36→23:22)
[2024-07-30] MEDS: SYNTHROID 75 MCG PO (05:41)
[2024-07-30] MEDS: MORPHINE SULFATE 4 MG IV (06:39)
[2024-07-30 06:47] LABS: % Basophils 0.2 % (0-2); % Eosinophils 5.8 % (0-6); % Immature Granulocytes 0.4 % (0-0.5); % Monocytes 7.2 % (1.7-9.3); % Neutrophils 52.4 % (42.2-75.2); Absolute Eosinophils 0.3 10^3/uL (0-0.7); Absolute Lymphocytes 1.9 10^3/uL (1.2-3.4); Absolute Monocytes 0.4 10^3/uL (0.1-0.6); Hematocrit 41.6 % (39.0-52.0); Mean Corp Hgb Conc. 33.7 g/dL (33.0-37.0); Mean Corpuscular Hgb 28.6 pg (27.0-31.0); Mean Corpuscular Volume 85.1 fL (80.0-94.0); Mean Platelet Volume 9.3 fL (7.4-10.4); Nucleated Red Blood Cells % 0 % (-); Platelet Count 252 10^3/uL (130-400); Red Blood Cell Count 4.89 10^6/uL (4.70-6.10); White Blood Cell Count 5.7 10^3/uL (4.8-10.8)
[2024-07-30 07:09] LABS: ALT (SGPT) 11 U/L (0-50); AST (SGOT) 21 U/L (17-59); Albumin 3.5 g/dl (3.5-5.0); Alkaline Phosphatase 76 U/L (38-126); Blood Urea Nitrogen 12 mg/dl (9-20); Calcium 8.4 mg/dl (8.4-10.2); Carbon Dioxide 23 mmol/L (22-30); Chloride 106 mmol/L (98-107); Estimated Creatinine Clearance 93 ml/min; Glucose 102 mg/dl (70-99); Potassium 4.3 mmol/L (3.5-5.1); Sodium 137 mmol/L (135-145); Total Bilirubin 0.9 mg/dl (0.2-1.3); Total Protein 5.9 g/dl (6.3-8.2); eGFR > 60.00
[2024-07-30] MEDS: FLOVENT 44 MCG INHALER 2 PUFF INH ×2 (07:18→19:20)
[2024-07-30 07:48] VITALS: BP 134/75
[2024-07-30] MEDS: COZAAR 50 MG PO (08:16)
[2024-07-30] MEDS: ULTRAM 50 MG PO ×2 (08:16→16:56)
[2024-07-30] MEDS: PEPCID 20 MG PO (09:05)
[2024-07-30] MEDS: OMNIPAQUE 50 ML PO (09:05)
--- NOTE | 2024-07-30 10:08 | W.PN.CRS1 ---
Today's Communication / Plan
-
CT abdomen pelvis
Remain n.p.o.
Assessment/Plan
-
Assessment: Right lower quadrant abdominal pain possibly related to his recent colonoscopy
Vitals normal, WBC 5.7
Plan:
-Given his persistent right lower quadrant pain with no improvement, CT abdomen and pelvis with p.o. and IV contrast ordered. Remain n.p.o. until CT is performed. Discussed with nursing. Continue pain control.
Subjective Data
Subjective Data
Date of Service: July 30, 2024
Patient states he still does not feel much better. He states his pain has been waxing waning since admission and has been quite tender unless he gets pain medication. He denies nausea or vomiting. He has not had any bowel movements but he still
has flatus. He has not had any issues urinating.
Objective Data
-
Vital Signs
Temp Pulse Resp BP Pulse Ox
97.5 F 54 18 134/75 95
07/30/24 07:48 07/30/24 07:48 07/30/24 07:48 07/30/24 07:48 07/30/24 07:48
Intake & Output
07/29/24 07/30/24 07/31/24
06:59 06:59 06:59
Intake Total 480 / 480
Balance 480 / 480
Intake:
Oral fluids 480 / 480
Other:
Number of approximated MODERATE 1
amounts of urine
Lab Results
07/30/24 06:24
07/30/24 06:24
Physical Exam
-
General: No Acute Distress and AOx3
Abdomen: Soft, Non Distended and Tender (mild to moderate RLQ pain)
Skin: Warm and Dry
--- NOTE | 2024-07-30 10:12 | W.PN.HOSP.TC ---
Today's Communication/Plan
-
CT of the abdomen pelvis today
Assessment / Plan
Assessment / Plan
#Right lower quadrant abdominal pain status post colonoscopy with polypectomy concern for post polypectomy pain
-History of colonoscopy first 1 benign polypectomy, second negative, third on 07/21/2024 post polypectomy
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
-Was seen at bedside by colorectal surgery
-With continued pain will be getting his repeat CT abdomen pelvis with IV and as well as oral contrast this time.
-Continue with n.p.o. till CT is resulted
-IV NSS
# Bilateral hand mild itchy maculopapular rash-suspect contact dermatitis. Follow for now
# History of asthma�no flare currently. Recently felt more symptomatic and was using inhalers and nebulizer. COVID-19/influenza negative
#Recent Dx November 2023 was taken off meds May [address] North
-Recent past week of shortness of breath, wheezing, cough requiring use of new inhaler Arnuity Ellipta and albuterol rescue inhaler
-Resume Arnuity Ellipta and albuterol rescue inhaler that patient stopped May 2024 per pulmonology
#HTN�benign
-Continue losartan 50 mg daily did not take this a.m.
#Hypothyroidism
-Continue levothyroxine 75 mcg p.o. daily
DVT prophylaxis
SCDs
Full code
Anticipated Discharge: Within 24 hours
Subjective/Interval History
-
Date of Service: July 30, 2024
Patient has still right lower quadrant persistent pain and needing IV morphine last evening.
This morning is still remains with the pain.
He had a reaction to both hand with a mild maculopapular rash and it is still present and he has noticed it may be the soap he used here in the hospital. He does not have it anywhere else in the body. He has associated itching with that.
Objective Data
-
Labs:
Laboratory Results
07/30/24
06:24
WBC 5.7
Hgb 14.0
Hct 41.6
Plt Count 252
Sodium 137
Potassium 4.3
Chloride 106
Carbon Dioxide 23
BUN 12
Creatinine 0.8
Glucose 102 H
Calcium 8.4
Total Bilirubin 0.9
AST 21
ALT 11
Alkaline Phosphatase 76
Vital Signs:
Vital Signs
Temp Pulse Resp BP Pulse Ox
97.5 F 54 18 134/75 95
07/30/24 07:48 07/30/24 07:48 07/30/24 07:48 07/30/24 07:48 07/30/24 07:48
I&O
07/29/24 07/30/24 07/31/24
06:59 06:59 06:59
Intake Total 480 / 480
Balance 480 / 480
Review of Systems
-
Constitutional: Denies Fever
Respiratory: Denies Trouble Breathing
Cardiac: Denies Chest Pain
Abdomen/GI: Reports Abdominal Pain; Denies Nausea or Vomiting
Neuro: Denies Dizzy
Physical Exam
-
General: Comfortable
HEENT: Moist Mucous Membranes
Respiratory: Non Labored Respirations; Negative Accessory Resp Muscle Use
GI: Soft, Nondistended, Normal Bowel Sounds and Tender (RLQ but no rebound or guarding)
Skin: Rash (BL hands with sparse maculopapular rash)
Neuro: AO x 3
Data Reviewed
-
Labs: Labs Reviewed by me
--- NOTE | 2024-07-30 14:36 | W.PN.UPDATE ---
Update Note
Progress Note Update
I updated the patient. A CT abdomen and pelvis are negative. He states earlier he had tramadol which helped a lot with his pain. I am putting him on full liquids for now and advancing him to a low residue diet for dinner. Discussed with the
patient and his via phone.
[2024-07-30 16:02] VITALS: BP 146/73
--- NOTE | 2024-07-30 16:21 | CM ---
CM met with Fitz and his to complete IA. 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 He is (I) amb and adls, denies need for any services at discharge.
Plan: Discharge to home with no identified needs.
[2024-07-30 23:55] VITALS: BP 107/61
[2024-07-31] MEDS: ULTRAM 50 MG PO ×2 (02:34→08:34)
[2024-07-31] MEDS: SYNTHROID 75 MCG PO (05:16)
[2024-07-31] MEDS: FLOVENT 44 MCG INHALER 2 PUFF INH ×2 (07:16→19:56)
[2024-07-31 07:30] LABS: % Basophils 0.5 % (0-2); % Eosinophils 6.1 % (0-6); % Immature Granulocytes 0.2 % (0-0.5); % Lymphocytes 29.3 % (20.5-51.1); % Monocytes 6.6 % (1.7-9.3); % Neutrophils 57.3 % (42.2-75.2); Absolute Eosinophils 0.4 10^3/uL (0-0.7); Absolute Lymphocytes 1.7 10^3/uL (1.2-3.4); Absolute Monocytes 0.4 10^3/uL (0.1-0.6); Absolute Neutrophils 3.3 10^3/uL (1.4-6.5); Hematocrit 39.2 % (39.0-52.0); Hemoglobin 13.4 g/dL (13.0-18.0); Mean Corp Hgb Conc. 34.2 g/dL (33.0-37.0); Mean Corpuscular Hgb 28.3 pg (27.0-31.0); Mean Corpuscular Volume 82.9 fL (80.0-94.0); Mean Platelet Volume 10.2 fL (7.4-10.4); Nucleated Red Blood Cells % 0 % (-); Platelet Count 232 10^3/uL (130-400); Red Blood Cell Count 4.73 10^6/uL (4.70-6.10); Red Cell Dist. Width 12.6 % (11.5-14.5); White Blood Cell Count 5.8 10^3/uL (4.8-10.8)
[2024-07-31 07:35] VITALS: BP 150/85
[2024-07-31] MEDS: PEPCID 20 MG PO (07:36)
[2024-07-31] MEDS: COZAAR 50 MG PO (07:36)
[2024-07-31] MEDS: TYLENOL 650 MG PO (07:38)
[2024-07-31 07:47] LABS: ALT (SGPT) 11 U/L (0-50); AST (SGOT) 20 U/L (17-59); Albumin 3.3 g/dl (3.5-5.0); Alkaline Phosphatase 72 U/L (38-126); Blood Urea Nitrogen 10 mg/dl (9-20); Calcium 8.2 mg/dl (8.4-10.2); Carbon Dioxide 25 mmol/L (22-30); Chloride 105 mmol/L (98-107); Estimated Creatinine Clearance 107 ml/min; Glucose 99 mg/dl (70-99); Potassium 4.3 mmol/L (3.5-5.1); Sodium 138 mmol/L (135-145); Total Bilirubin 0.4 mg/dl (0.2-1.3); Total Protein 5.6 g/dl (6.3-8.2); eGFR > 60.00
[2024-07-31] MEDS: NSS 1000 IV ×2 (09:25→18:27)
[2024-07-31] MEDS: DILAUDID 0.5 MG IV (09:29)
--- NOTE | 2024-07-31 09:31 | W.PN.HOSP.TC ---
Today's Communication/Plan
-
Consult GI
Assessment / Plan
Assessment / Plan
#Right lower quadrant abdominal pain status post colonoscopy with polypectomy concern for post polypectomy pain
-History of colonoscopy first 1 benign polypectomy, second negative, third on 07/21/2024 post polypectomy
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
-Remains asymptomatic despite negative CT abdomen pelvis with IV and oral contrast .
-Continue with diet
- Consult GI
# Bilateral hand mild itchy maculopapular rash-suspect contact dermatitis. Follow for now
# History of asthma�no flare currently. Recently felt more symptomatic and was using inhalers and nebulizer. COVID-19/influenza negative
#Recent Dx November 2023 was taken off meds May [address] North
-Recent past week of shortness of breath, wheezing, cough requiring use of new inhaler Arnuity Ellipta and albuterol rescue inhaler
-Resume Arnuity Ellipta and albuterol rescue inhaler that patient stopped May 2024 per pulmonology
# Trace left pleural effusion and rt basal atx vs consolidation - recent upper respiratory symptoms as above noted . Not wheezy , no fever , no increased phglem . Hold on abx and follow the pleural effusion as OP with follow up CXR in 4weeks
#HTN�benign
-Continue losartan 50 mg daily did not take this a.m.
#Hypothyroidism
-Continue levothyroxine 75 mcg p.o. daily
DVT prophylaxis
SCDs
Full code
Anticipated Discharge: > 48 hours
Subjective/Interval History
-
Date of Service: July 31, 2024
Remains with right lower quadrant pain. No nausea or vomiting. Able to tolerate diet. Had small bowel movements but denies any blood in the stools.
Objective Data
-
Labs:
Laboratory Results
07/31/24
06:27
WBC 5.8
Hgb 13.4
Hct 39.2
Plt Count 232
Sodium 138
Potassium 4.3
Chloride 105
Carbon Dioxide 25
BUN 10
Creatinine 0.7
Glucose 99
Calcium 8.2 L
Total Bilirubin 0.4
AST 20
ALT 11
Alkaline Phosphatase 72
Vital Signs:
Vital Signs
Temp Pulse Resp BP Pulse Ox
97.7 F 51 18 150/85 97
07/31/24 07:35 07/31/24 07:36 07/31/24 07:35 07/31/24 07:36 07/31/24 07:35
I&O
07/30/24 07/31/24 08/01/24
06:59 06:59 06:59
Intake Total 480 / 480 1320 / 1320
Balance 480 / 480 1320 / 1320
Review of Systems
-
Constitutional: Denies Fever
Respiratory: Denies Trouble Breathing
Cardiac: Denies Chest Pain
Neuro: Denies Dizzy
Physical Exam
-
General: Comfortable
Respiratory: Non Labored Respirations; Negative Accessory Resp Muscle Use
GI: Soft, Nondistended, Normal Bowel Sounds and Tender (RLQ without rebound or rigidity)
Neuro: AO x 3
--- NOTE | 2024-07-31 11:17 | W.PN.CRS1 ---
Today's Communication / Plan
-
Consider GI consult
No role for surgery
Assessment/Plan
-
Assessment: Right lower quadrant abdominal pain possibly related to his recent colonoscopy
Vitals normal, WBC 5.8. Vitals normal.
Plan:
-There are no plans for colorectal surgery at this time
-Consider GI consult given his persistent pain status post colonoscopy
-Okay for Toradol IV from our perspective
Subjective Data
Subjective Data
Date of Service: July 31, 2024
Patient states he initially felt better yesterday but then he ate a low residue diet and his right lower quadrant pain returned. He needed tramadol at 2:30 AM this morning as morphine did not help him. He has bowel movements that are loose. He
denies nausea or vomiting.
Objective Data
-
Vital Signs
Temp Pulse Resp BP Pulse Ox
97.7 F 51 18 150/85 97
07/31/24 07:35 07/31/24 07:36 07/31/24 07:35 07/31/24 07:36 07/31/24 07:35
Intake & Output
07/30/24 07/31/24 08/01/24
06:59 06:59 06:59
Intake Total 480 / 480 1320 / 1320
Balance 480 / 480 1320 / 1320
Intake:
Oral fluids 480 / 480 120 / 120
IV fluids (Total) 1200 / 1200
Other:
Number of approximated MODERATE 1 4
amounts of urine
Lab Results
07/31/24 06:27
07/31/24 06:27
Physical Exam
-
General: No Acute Distress and AOx3
Abdomen: Soft, Non Distended and Tender (RLQ mild tenderness)
--- NOTE | 2024-07-31 15:05 | CON.GI ---
Addendum entered and electronically signed by Young Campbell MD 07/31/24 16:56:
Discussed with patient GI Dr. Smith-3 mm cecal polyp was removed during colonoscopy with cold snare.
Original Note:
Consultation
-
Date/Time Consultation Requested: 07/31/23
Date/Time Consultation Performed: 07/31/23
Requesting Provider: Hospitalist
Performing Provider:
Reason for Consultation: abdominal pain
Medical History
Chief Complaint / HPI
Chief Complaint: Abdominal pain-right lower quadrant
History of Present Illness:
63-year-old male with below mentioned past medical history is admitted on 07/29/2024 with right lower quadrant abdominal pain. Patient underwent colonoscopy 07/21/2024 at [facility] with Dr. Smith. He was told 3 mm polyp was removed from the
cecum. No official records available. He was doing okay after the colonoscopy for 5 days. Then he started getting progressively worse and right lower quadrant abdominal pain. Denies any nausea or vomiting or fever or chills. No rectal bleeding.
Patient refers seen by colorectal surgery after admission. He underwent CT abdomen x 2 -no acute pathology.
Past Medical History
Past Medical History: Other ( asthma colonic benign polyps HTN hypothyroidism )
Social History
Tobacco: Non-Smoker
Alcohol: None
Drug: None
Personal:
Allergies / Home Medications
Allergy/AdvReac Type Severity Reaction Status Date / Time
hydrochlorothiazide Allergy Unknown Verified 07/29/24 09:36
�Medication �Instructions �Recorded
levothyroxine 75 mcg tablet 75 mcg PO DAILY 11/12/23
losartan 50 mg tablet 50 mg PO DAILY 11/12/23
albuterol sulfate 2.5 mg/3 mL 2.5 mg (3 mL) inhalation Q4H PRN 12/01/23
(0.083 %) solution for nebulization shortness of breath or wheezing
#90 mL
Arnuity Ellipta 100 mcg inhalation DAILY 07/29/24
Review of Systems
Vital Signs
Temp Pulse Resp BP Pulse Ox
97.7 F 51 18 150/85 97
07/31/24 07:35 07/31/24 07:36 07/31/24 07:35 07/31/24 07:36 07/31/24 07:35
Physical Exam
Exam
General: Well Developed, Well Nourished and No Apparent Distress
Respiratory: Clear
Cardiac: S1/S2
GI: Soft, Non Distended and Tender (Mild tenderness right lower quadrant on deep palpation)
Results
WBC 5.8 10^3/uL (4.8-10.8) 07/31/24 06:27
Hgb 13.4 g/dL (13.0-18.0) 07/31/24 06:27
Hct 39.2 % (39.0-52.0) 07/31/24 06:27
MCV 82.9 fL (80.0-94.0) 07/31/24 06:27
Plt Count 232 10^3/uL (130-400) 07/31/24 06:27
Absolute Neuts (auto) 3.3 10^3/uL (1.4-6.5) 07/31/24 06:27
Sodium 138 mmol/L (135-145) 07/31/24 06:27
Potassium 4.3 mmol/L (3.5-5.1) 07/31/24 06:27
Chloride 105 mmol/L (98-107) 07/31/24 06:27
Carbon Dioxide 25 mmol/L (22-30) 07/31/24 06:27
BUN 10 mg/dl (9-20) 07/31/24 06:27
Creatinine 0.7 mg/dL (0.7-1.3) 07/31/24 06:27
Calcium 8.2 mg/dl (8.4-10.2) L 07/31/24 06:27
Total Bilirubin 0.4 mg/dl (0.2-1.3) 07/31/24 06:27
AST 20 U/L (17-59) 07/31/24 06:27
ALT 11 U/L (0-50) 07/31/24 06:27
Alkaline Phosphatase 72 U/L (38-126) 07/31/24 06:27
Lipase 66 U/L (23-300) 07/29/24 11:30
Diagnostic Image Results:
Prior GI Procedures:
EGD:
Colonoscopy:
Assessment / Plan
-
63-year-old male who underwent colonoscopy 07/21/2024 at [facility] with removal of 3 mm polyp in the cecum (no official records available) -started having severe sharp right lower quadrant abdominal pain after 5 days from his colonoscopy. Evaluated
by colorectal surgery during this admission. CT Abd/ Pel x 2 -no acute pathology . Patient claims he was doing well on liquid diet but pain worsened with solid food.
-- RLQ abdominal pain
-- s/p colonoscopy with polypectomy ( 3 mm polyp in the cecum ) 07/21/2024
plan
Currently we do not have official colonoscopy records. 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 WBC normal . no fever or chills. Will get
official records. Patient claims he had similar episode 25 years back-resolved after he started avoiding eggs. Possible differential includes -IBS versus food allergy versus etc.
Will give a trial of Bentyl. Will advise on low-fat low residual diet for now . Minimize opioid use
Total Time Spent with Patient (in minutes): 55
-
-
Thank you for consultation and allowing me to participate in the patient's care. Please call the environmental emergencies planner GI physician during the after hours with any questions or concerns.
[2024-07-31 15:15] VITALS: BP 157/85
[2024-07-31] MEDS: BENTYL 20 MG PO ×2 (15:52→21:24)
[2024-07-31 23:13] VITALS: BP 113/65
[2024-08-01] MEDS: ULTRAM 50 MG PO (02:49)
[2024-08-01] MEDS: SYNTHROID 75 MCG PO (05:47)
[2024-08-01 06:26] LABS: % Basophils 0.3 % (0-2); % Eosinophils 5.6 % (0-6); % Immature Granulocytes 0.3 % (0-0.5); % Lymphocytes 19.4 % (20.5-51.1); % Monocytes 7.1 % (1.7-9.3); % Neutrophils 67.3 % (42.2-75.2); Absolute Eosinophils 0.4 10^3/uL (0-0.7); Absolute Lymphocytes 1.4 10^3/uL (1.2-3.4); Absolute Monocytes 0.5 10^3/uL (0.1-0.6); Absolute Neutrophils 4.7 10^3/uL (1.4-6.5); Hemoglobin 13.9 g/dL (13.0-18.0); Mean Corp Hgb Conc. 33.9 g/dL (33.0-37.0); Mean Corpuscular Hgb 28.5 pg (27.0-31.0); Mean Corpuscular Volume 84.2 fL (80.0-94.0); Mean Platelet Volume 9.5 fL (7.4-10.4); Nucleated Red Blood Cells % 0 % (-); Platelet Count 261 10^3/uL (130-400); Red Blood Cell Count 4.87 10^6/uL (4.70-6.10); Red Cell Dist. Width 12.7 % (11.5-14.5)
[2024-08-01 06:54] LABS: ALT (SGPT) 12 U/L (0-50); AST (SGOT) 27 U/L (17-59); Albumin 3.5 g/dl (3.5-5.0); Alkaline Phosphatase 69 U/L (38-126); Blood Urea Nitrogen 6 mg/dl (9-20); Calcium 8.5 mg/dl (8.4-10.2); Carbon Dioxide 25 mmol/L (22-30); Chloride 103 mmol/L (98-107); Estimated Creatinine Clearance 93 ml/min; Glucose 110 mg/dl (70-99); Potassium 4.1 mmol/L (3.5-5.1); Sodium 138 mmol/L (135-145); Total Bilirubin 0.8 mg/dl (0.2-1.3); eGFR > 60.00
[2024-08-01] MEDS: TYLENOL 650 MG PO (07:05)
[2024-08-01] MEDS: BENTYL 20 MG PO ×3 (07:05→20:06)
[2024-08-01] MEDS: FLOVENT 44 MCG INHALER 2 PUFF INH ×2 (07:24→20:30)
[2024-08-01] MEDS: DILAUDID 0.5 MG IV (07:49)
[2024-08-01 08:06] VITALS: BP 157/88
[2024-08-01] MEDS: COZAAR 50 MG PO (08:08)
[2024-08-01] MEDS: PEPCID 20 MG PO (08:08)
--- NOTE | 2024-08-01 08:36 | W.PN.GI.CBS2 ---
Today's Communication / Plan
-
Reports improvement with Bentyl and tolerating diet. Start Miralax for bowel regimen and simethicone if related to constipation/gas-related discomfort. Likely functional and/or IBS given his symptomatology and improvement with anti-spasmodics. Needs
close follow-up with his primary GI, Dr. Smith. GI team will sign-off, please call back with any questions or concerns.
Assessment / Plan
-
63-year-old male who underwent colonoscopy 07/21/2024 at [facility] with removal of 3 mm polyp in the cecum (no official records available) -started having severe sharp right lower quadrant abdominal pain after 5 days from his colonoscopy. Evaluated
by colorectal surgery during this admission. CT Abd/ Pel x 2 -no acute pathology . Patient claims he was doing well on liquid diet but pain worsened with solid food.
#RLQ abdominal pain
#S/p colonoscopy with polypectomy ( 3 mm polyp in the cecum ) 07/21/2024
Recommendations:
- Low residue diet as tolerated
- His presentation is not consistent with post-polypectomy syndrome given cold snare polypectomy and diminutively sized polyp
- Labs continue to remain reassuring without any leukocytosis or anemia
- Improving with Bentyl, which supports likely functional and/or underlying IBS
- Continue Bentyl 20 mg TiD, monitor for constipation as can be constipating
- Start Miralax 17 gm BiD as well for a bowel regimen and simethicone PRN for gas if related to gas-discomfort
- Minimize opioids as much as possible to avoid opioid-induced GI dysmotility
- Consider standing acetaminophen as well for pain control
- Encourage frequent ambulation while inpatient
- Needs close outpatient f/u with his primary Division Order Analyst at [facility] (Dr. Smith)
- Rest of care per primary team
Discussed with primary internal medicine team. GI team will sign-off. Please call back with any questions or concerns.
Subjective
Subjective
Date of Service: August 01, 2024
- No acute events overnight
- AM labs continue to remain wnl
Resting comfortable, although anxious this morning. Still with intermittent, dull spasms in his RLQ. Endorsed that it felt like a muscular ache. No other nausea/vomiting, changes in bowel habits or bloody stools. Prior CT imaging was grossly
unremarkable and again reviewed prior colonoscopy findings as well. Pony better with bentyl yesterday afternoon/evening, was able to tolerate a bowel of cereal as well without any difficulty.
Objective
Data Reviewed
Laboratory Data:
Laboratory Results
08/01/24 06:00
08/01/24 06:00
Laboratory Results
Total Bilirubin 0.8 mg/dl (0.2-1.3) 08/01/24 06:00
AST 27 U/L (17-59) 08/01/24 06:00
ALT 12 U/L (0-50) 08/01/24 06:00
Alkaline Phosphatase 69 U/L (38-126) 08/01/24 06:00
Lipase 66 U/L (23-300) 07/29/24 11:30
Vital Signs and I&O:
Vital Signs
Temp Pulse Resp BP Pulse Ox
97.7 F 55 18 157/88 98
08/01/24 08:06 08/01/24 08:08 08/01/24 08:06 08/01/24 08:08 08/01/24 08:06
I&O
07/31/24 08/01/24 08/02/24
06:59 06:59 06:59
Intake Total 1320 / 1320 1720 / 1720
Balance 1320 / 1320 1720 / 1720
Physical Exam
Physical Exam
HEENT: Anicteric and Moist mucous membranes
Cardiology: Normal Sinus Rhythm
Pulmonary: Other (Normal WOB on room air)
GI: Soft, Non Distended and Other (Minimal TTP in RLQ on deep palpation without any rebound tenderness or voluntary/involuntary gaurding)
Extremities: No Edema
Neuro: Non Focal
[2024-08-01] MEDS: MIRALAX 17 GRAMS PO ×2 (09:45→20:06)
[2024-08-01] MEDS: MYLICON 80 MG PO (09:45)
--- NOTE | 2024-08-01 10:34 | W.PN.CRS1 ---
Today's Communication / Plan
-
no plans for surgery
will s/o
Assessment/Plan
-
Assessment: Right lower quadrant abdominal pain possibly related to his recent colonoscopy
Vitals normal, WBC 7.0. Vitals normal.
Plan:
-There are no plans for colorectal surgery at this time
-Appreciate GI consult
-Okay for Toradol IV from our perspective
-No surgery planned at this time. Please contact us if any surgical issues arise. Will sign off.
Subjective Data
Subjective Data
Date of Service: August 01, 2024
Patient states he still has RLQ pain that might be worse. He is having soft bowel movements. He denies bleeding. He denies blood in his stool.
Objective Data
-
Vital Signs
Temp Pulse Resp BP Pulse Ox
97.7 F 55 18 157/88 98
08/01/24 08:06 08/01/24 08:08 08/01/24 08:06 08/01/24 08:08 08/01/24 08:06
Intake & Output
07/31/24 08/01/24 08/02/24
06:59 06:59 06:59
Intake Total 1320 / 1320 1720 / 1720
Balance 1320 / 1320 1720 / 1720
Intake:
Oral fluids 120 / 120 720 / 720
IV fluids (Total) 1200 / 1200 1000 / 1000
Other:
Number of approximated MODERATE 4 3
amounts of urine
Lab Results
08/01/24 06:00
08/01/24 06:00
Physical Exam
-
General: No Acute Distress and AOx3
Abdomen: Soft, Non Distended and Tender (RLQ - mild)
Skin: Warm and Dry
--- NOTE | 2024-08-01 11:12 | W.PN.HOSP.TC ---
Today's Communication/Plan
-
DC
Assessment / Plan
Assessment / Plan
#Right lower quadrant abdominal pain status post colonoscopy with polypectomy concern for post polypectomy pain
-History of colonoscopy first 1 benign polypectomy, second negative, third on 07/21/2024 post polypectomy. Recent polyp was 3 mm and was taken out with cold snare.
-Remains asymptomatic despite negative CT abdomen pelvis with IV and oral contrast . Labs are nondiagnostic and within normal limit.
-Unclear if this is functional or irritable bowel related. Started on Bentyl. Bowel regimen with MiraLAX advised.
-GI and colorectal surgery signed off.
-Will discharge patient home today on symptomatic treatment as above.
# Bilateral hand mild itchy maculopapular rash-suspect contact dermatitis. Fading.
# History of asthma�no flare currently. Recently felt more symptomatic and was using inhalers and nebulizer. COVID-19/influenza negative
#Recent Dx November 2023 was taken off meds May [address] [place]
-Recent past week of shortness of breath, wheezing, cough requiring use of new inhaler Arnuity Ellipta and albuterol rescue inhaler
-Resume Arnuity Ellipta and albuterol rescue inhaler that patient stopped May 2024 per pulmonology
# Trace left pleural effusion and rt basal atx vs consolidation - recent upper respiratory symptoms as above noted . Not wheezy , no fever , no increased phglem . Hold on abx and follow the pleural effusion as OP with follow up CXR in 4weeks
#HTN�benign
-Continue losartan 50 mg daily did not take this a.m.
#Hypothyroidism
-Continue levothyroxine 75 mcg p.o. daily
DVT prophylaxis
SCDs
Full code
Discussed with GI-they think it is either functional or irritable bowel and okay from discharge from their standpoint.
More than 30 minutes spent in discharge including
Final examination of the patient
Summarizing hospital stay
Instructions for continuing care to all relevant caregivers
Preparation of discharge records, prescriptions, and referral forms
Total time spent (in minutes): 32 minutes
Anticipated Discharge: Today
Subjective/Interval History
-
Date of Service: August 01, 2024
Tolerating diet. No nausea or vomiting. Having bowel movement without any bleeding.
Still with intermittent right lower quadrant pain and he is using intermittent IV pain medication and tramadol.
No fever chills.
Objective Data
-
Labs:
Laboratory Results
08/01/24
06:00
WBC 7.0
Hgb 13.9
Hct 41.0
Plt Count 261
Sodium 138
Potassium 4.1
Chloride 103
Carbon Dioxide 25
BUN 6 L
Creatinine 0.8
Glucose 110 H
Calcium 8.5
Total Bilirubin 0.8
AST 27
ALT 12
Alkaline Phosphatase 69
Vital Signs:
Vital Signs
Temp Pulse Resp BP Pulse Ox
97.7 F 55 18 157/88 98
08/01/24 08:06 08/01/24 08:08 08/01/24 08:06 08/01/24 08:08 08/01/24 08:06
I&O
07/31/24 08/01/24 08/02/24
06:59 06:59 06:59
Intake Total 1320 / 1320 1720 / 1720
Balance 1320 / 1320 1720 / 1720
Review of Systems
-
Respiratory: Denies Trouble Breathing
Cardiac: Denies Chest Pain
Neuro: Denies Dizzy
Physical Exam
-
General: Comfortable
Respiratory: Clear to Auscultation and Non Labored Respirations; Negative Accessory Resp Muscle Use
Cardiac: Regular Rhythm and S1/S2
GI: Soft, Nondistended, Normal Bowel Sounds and Tender (Discomfort in RLQ but no rebound or guarding)
Neuro: AO x 3
Data Reviewed
-
Labs: Labs Reviewed by me
[2024-08-01] MEDS: XANAX 0.25 MG PO (11:52)
--- NOTE | 2024-08-01 12:01 | CM ---
Fitz is cleared for discharge to home today with no needs. His will provide transport.
Plan: Discharge to home with no identified needs.
[2024-08-01] MEDS: TORADOL 15 MG IV ×2 (13:06→20:09)
[2024-08-01] MEDS: VENTOLIN NEBULES 2.5 MG INH (15:21)
[2024-08-01 16:15] VITALS: BP 137/83
[2024-08-01 23:55] VITALS: BP 91/51
[2024-08-02] MEDS: SYNTHROID 75 MCG PO (05:44)
[2024-08-02 07:00] VITALS: BP 127/72
[2024-08-02] MEDS: COZAAR 50 MG PO (08:22)
[2024-08-02] MEDS: BENTYL 20 MG PO (08:22)
[2024-08-02] MEDS: PEPCID 20 MG PO (08:22)
[2024-08-02] MEDS: MIRALAX 17 GRAMS PO (08:22)
[2024-08-02] MEDS: TORADOL 15 MG IV ×2 (08:25→14:54)
[2024-08-02] MEDS: VENTOLIN NEBULES 2.5 MG INH (08:28)
[2024-08-02] MEDS: FLOVENT 44 MCG INHALER 2 PUFF INH (08:28)
--- NOTE | 2024-08-02 12:06 | W.PN.HOSP.TC ---
Today's Communication/Plan
-
DC
Assessment / Plan
Assessment / Plan
#Right lower quadrant abdominal pain status post colonoscopy with polypectomy concern for post polypectomy pain
-History of colonoscopy first 1 benign polypectomy, second negative, third on 07/21/2024 post polypectomy. Recent polyp was 3 mm and was taken out with cold snare.
-Remains asymptomatic despite negative CT abdomen pelvis with IV and oral contrast . Labs are nondiagnostic and within normal limit.
-Unclear if this is functional or irritable bowel related. Started on Bentyl. Bowel regimen with MiraLAX advised.
-GI and colorectal surgery signed off.
-IV toradol improved his symptoms
- With improved symptoms will dc home on po Toradol and tx as above .Advised to follow with his primary GI as OP.
# Bilateral hand mild itchy maculopapular rash-suspect contact dermatitis. Fading.
# History of asthma�no flare currently. Recently felt more symptomatic and was using inhalers and nebulizer. COVID-19/influenza negative
#Recent Dx November 2023 was taken off meds May [address] North
-Recent past week of shortness of breath, wheezing, cough requiring use of new inhaler Arnuity Ellipta and albuterol rescue inhaler
-Resume Arnuity Ellipta and albuterol rescue inhaler that patient stopped May 2024 per pulmonology
# Trace left pleural effusion and rt basal atx vs consolidation - recent upper respiratory symptoms as above noted . Not wheezy , no fever , no increased phglem . Hold on abx and follow the pleural effusion as OP with follow up CXR in 4weeks
#HTN�benign
-Continue losartan 50 mg daily did not take this a.m.
#Hypothyroidism
-Continue levothyroxine 75 mcg p.o. daily
DVT prophylaxis
SCDs
Full code
Discussed with GI-they think it is either functional or irritable bowel and okay from discharge from their standpoint.
More than 30 minutes spent in discharge including
Final examination of the patient
Summarizing hospital stay
Instructions for continuing care to all relevant caregivers
Preparation of discharge records, prescriptions, and referral forms
Total time spent (in minutes): 31 minutes
Anticipated Discharge: Today
Subjective/Interval History
-
Date of Service: August 02, 2024
Toradol IV seems to make the difference. Is not requiring tramadol or IV Dilaudid. Had a bowel movement which was brown and soft today. He states he had 2 of them.
Tolerating diet.
No fever or chills.
Objective Data
-
Vital Signs:
Vital Signs
Temp Pulse Resp BP Pulse Ox
97.9 F 82 18 127/72 97
08/02/24 07:00 08/02/24 08:33 08/02/24 08:33 08/02/24 07:00 08/02/24 08:33
I&O
08/01/24 08/02/24 08/03/24
06:59 06:59 06:59
Intake Total 1720 / 1720
Balance 1720 / 1720
Review of Systems
-
Constitutional: Denies Fever
Respiratory: Denies Trouble Breathing
Cardiac: Denies Chest Pain
Neuro: Denies Dizzy
Physical Exam
-
General: Comfortable
HEENT: Moist Mucous Membranes
Respiratory: Non Labored Respirations; Negative Accessory Resp Muscle Use
Cardiac: Regular Rhythm and S1/S2; Negative Tachycardic
GI: Soft, Nondistended and Normal Bowel Sounds; Negative Tender (Improved tenderness from the RLQ)
Neuro: AO x 3
Psych: Calm
--- NOTE | 2024-08-02 13:33 | CM ---
CM following re: discharge planning.
Reviewed pt's chart, met with pt and pt's spouse at bedside.
Discharge order noted. Both pt and his spouse are aware and pt's spouse stated she will transport her home.
No after care VN services indicated.
Plan: home no needs. Spouse to transport.
[2024-08-02 15:30] VITALS: BP 129/82
== END 2024-08-02 16:30 | disposition home or self-care (01) | DRG 948 ==
LOC: 4 EAST ACU 16:20
PROVIDERS: Clinical Nurse Specialist Family Health; Physician Assistant; ADMITTING PHYSICIAN Internal Medicine; CONSULT PHYSICIAN Internal Medicine Gastroenterology; CONSULT PHYSICIAN Surgery; EMERGENCY PHYSICIAN Emergency Medicine; FAMILY PHYSICIAN Family Medicine
DX: G89.18 Other acute postprocedural pain (principal); J90 Pleural effusion, not elsewhere classified; K58.9 Irritable bowel syndrome, unspecified; I10 Essential (primary) hypertension; E03.9 Hypothyroidism, unspecified; Z79.899 Other long term (current) drug therapy
CPT/HCPCS: 74177; 80053; 81003; 81015; 83690; 85025; 87502; 87811; 94640; 96361; 96374; 96375; 96376; 99285; Q9967